=== PATIENT | female | born 1950 | race Caucasian/White ===

== ENCOUNTER 2017-08-09 14:00 | Inpatient (IN) | payer BC, MEDICARE, SELFPAY ==
--- NOTE | 2017-08-09 13:14 | EKG12_ITS ---
Test Reason : SOB Blood Pressure : / mmHG Vent. Rate : 082 BPM Atrial Rate : 082 BPM P-R Int : 140 ms QRS Dur : 112 ms QT Int : 406 ms P-R-T Axes : 043 039 077 degrees QTc Int : 474 ms Normal sinus rhythm Normal ECG Confirmed by ESTEBAN HOSKINS, SANDY ([id number]), assistant production editor NADIA LITTLE ([id number]) on 08/12/2017 5:45:01 PM Referred By: Bryan Huffman Confirmed By:SANDY ORELLANA MD
--- NOTE | 2017-08-09 14:10 | RAD_ITS ---
STUDY: X-RAY CHEST REASON FOR EXAM: Female, 67 years old. Cough 1 week TECHNIQUE: PA and lateral views of the chest. COMPARISON: None. FINDINGS: There is a pattern of increased interstitial markings. This is seen. The lungs especially in the right lower lobe. There is a calcified granuloma in the right upper lobe measuring 7.7 mm. There is no demonstrated pleural abnormality. Normal size heart. Normal mediastinum and ana lilia. Normal visualized pulmonary arteries. Normal visualized aortic arch and descending thoracic aorta. There are diffuse degenerative changes of the visualized thoracic spine. Normal visualized ribs, clavicles, and shoulders. There is no demonstrated abnormality of the visualized soft tissue structures of the upper abdomen. RAD/Chest PA and Lateral IMPRESSION: Findings suspicious for possible mild interstitial edema and/or atypical infiltrates. Mild degenerative change thoracic spine. Electronically Signed: Kristine Murphy MD at 14:49 EDT Tel , Service support ,
--- NOTE | 2017-08-09 17:38 | DT_ITS ---
This patient was seen during an EMR downtime August 03, 2017 - August 10, 2017. This patient may have a combination of paper and electronic documentation or all paper documentation. All documentation is viewable within the e-chart portion of [employer] for each patient visit.
[2017-08-10] VITALS (7 sets, daily range): BP systolic 155–166; BP diastolic 74–85; PULSE 69–87; RESP 14–20; TEMP 36.4–36.8; O2SAT 92–94; BMI 32.5
[2017-08-10] MEDS: hydroCHLOROthiazide 25 MG Tablet PO (05:50)
[2017-08-10] MEDS: Labetalol 200 MG Tablet PO ×2 (05:55→19:29)
[2017-08-10] MEDS: Levothyroxine 88 MCG Tablet PO (06:00)
[2017-08-10] MEDS: Ipratropium/Albuterol Sulfate 3 ML AMPUL.NEB INHALATION ×4 (07:00→22:50)
[2017-08-10 07:04] LABS: Hemoglobin 12.7 g/dl (12.0-15.0); Mean Corp Hgb Conc 32.6 g/gl (32-36); Mean Corpuscular Hgb 30.5 pg (27.0-32.0); Mean Corpuscular Volume 93.8 fL (81-99); Mean Platelet Vol. 9.4 fl (6.2-12.0); Platelet Count 338 K/mm3 (150-450); RBC Distribution Width CV 13.8 % (11.6-14.6); RBC Distribution Width SD 45.3 fl (35.1-43.9); Red Blood Count 4.16 M/mm3 (4.2-5.4); White Blood Count 10.9 K/mm3 (4.4-11.0)
[2017-08-10 07:08] LABS: Scan Indicated on CBC? Y/N NO
[2017-08-10 07:26] LABS: Anion Gap 12 (5-15); BUN 14 mg/dL (7-18); BUN/Creat Ratio 13.9 RATIO (10-20); Calcium,Total 8.4 mg/dL (8.5-10.1); Chloride 99 mmol/L (98-107); Creatinine, Serum 1.01 mg/dL (0.55-1.02); EST Glomerular Filtration Rate 58 mL/min (>60); Est Glom Filt Rate - Afr Amer 71 mL/min (>60); Glucose 201 mg/dL (74-106); Potassium 3.7 mmol/L (3.5-5.1); Sodium Level 136 mmol/L (136-145)
--- NOTE | 2017-08-10 08:07 | ECHOD_ITS ---
Reason For Study: COPD Procedure This was a 2D Doppler, Color Flow transthoracic echocardiogram. Pt. scanned sitting up due to coughing. The study was technically difficult. Contrast injection was performed. Exam performed portable in patient room. Left Ventricle Normal LV size. Segmental dysfunction with preserved ejection fraction (see wall motion). The estimated ejection fraction is 55 %. There is evidence of diastolic dysfunction. Infero-Basal: Hypokinetic. Basal inferoseptal: Hypokinetic. Right Ventricle Normal RV size. Normal systolic function. Atria The left atrium is moderately enlarged. Normal right atrium. No doppler evidence for ASD. Mitral Valve There is no mitral annular calcification. Normal mitral valve. Trivial mitral valve insufficiency. Tricuspid Valve Normal tricuspid valve. Trivial tricuspid valve insufficiency. Unable to estimate RV systolic pressure/pulmonary artery pressure due to technically difficult study. Aortic Valve The aortic valve is not well visualized. Pulmonic Valve The pulmonic valve is not well visualized. Great Vessels Normal sized aortic root. Pericardium/Pleural No pericardial effusion. Medication Diluted definity 5ml given slow IV push to enhance endocardial definition. MMode/2D Measurements & Calculations LVIDd: 5.3 cm IVSd: 1.5 cm Ao root diam: 3.3 cm LVIDs: 3.7 cm LVPWd: 1.7 cm LA dimension: 3.9 cm RVDd: 3.6 cm FS: 29.7 % LAV(MOD-bp): 79.1 ml LA A4 area: 26.1 cm2 RA A4 area: 19.8 cm2 LAV(MOD-bp) Indexed: 34.4 ml/m2 LAV(MOD-sp2): 67.8 ml LAV(MOD-sp4): 84.0 ml Doppler Measurements & Calculations MV E max josh: 107.0 cm/sec Lat Peak E' Josh: 7.6 cm/sec Med Peak E' Josh: 5.1 cm/sec MV A max josh: 84.9 cm/sec E/E' lat: 14.0 E/E' med: 21.0 MV E/A: 1.3 Ao V2 max: 165.9 cm/sec LV V1 max: 99.4 cm/sec PA V2 max: 97.2 cm/sec Ao max P.0 mmHg LV V1 max P.0 mmHg Interpretation Summary The study was technically difficult. Contrast injection was performed. Segmental dysfunction with preserved ejection fraction (see wall motion). The estimated ejection fraction is 55 %. The left atrium is moderately enlarged. Trivial mitral valve insufficiency. Trivial tricuspid valve insufficiency. Unable to estimate RV systolic pressure/pulmonary artery pressure due to technically difficult study. There is evidence of diastolic dysfunction. Ordering Physician: Bogdan Acosta Referring Physician: Delroy Gupta Performed By: Abby Palacios RDCS
[2017-08-10] MEDS: guaiFENesin 1,200 MG Tablet 1200 MG PO (09:52)
[2017-08-10] MEDS: Doxycycline 100 MG CAPSULE PO ×2 (09:52→22:02)
[2017-08-10] MEDS: Losartan Potassium 100 MG Tablet PO (10:47)
[2017-08-10 11:31] LABS: Bedside Glucose 250 mg/dL (70-110)
[2017-08-10] MEDS: Insulin Lispro 100 UNIT/ML INSULN.PEN SC ×3 (11:32→22:02)
--- NOTE | 2017-08-10 13:32 | CASEMGMT ---
RN TIERRA Face to Face with patient for initial transition planning/care coordination assessment. RN CM introduced self and role at [facility]. Patient lying in bed, alert and oriented. Patient willing to participate in assessment and is able to answer all questions appropriately. Care providers, pharmacy, and demographics verified. See link attached. Patient wishes to discharge home, denies need for home health at this time. Patient states she has no further needs or concerns at this time. CM to follow for discharge planning needs that may arise. Disposition Plan: Patient to discharge home with family support and follow-up plans in place.
[2017-08-10] MEDS: Famotidine 20 MG Tablet PO ×2 (13:53→22:02)
[2017-08-10 15:21] LABS: Bedside Glucose 178 mg/dL (70-110)
--- NOTE | 2017-08-10 16:09 | NURSING ---
echo staff called and reminded of order
[2017-08-10] MEDS: guaiFENesin 10 ML UDC (200MG/10ML) PO ×2 (18:30→22:06)
[2017-08-10 22:16] LABS: Bedside Glucose 200 mg/dL (70-110)
[2017-08-11] VITALS (11 sets, daily range): BP systolic 145–178; BP diastolic 78–92; PULSE 66–78; RESP 14–21; TEMP 36.4–36.8; O2SAT 92–94
[2017-08-11] MEDS: guaiFENesin 10 ML UDC (200MG/10ML) PO ×3 (01:32→09:44)
[2017-08-11] MEDS: Ipratropium/Albuterol Sulfate 3 ML AMPUL.NEB INHALATION ×6 (02:51→23:00)
[2017-08-11 06:11] LABS: Anion Gap 10 (5-15); BUN 19 mg/dL (7-18); BUN/Creat Ratio 22.4 RATIO (10-20); Calcium,Total 8.6 mg/dL (8.5-10.1); Chloride 100 mmol/L (98-107); Creatinine, Serum 0.85 mg/dL (0.55-1.02); EST Glomerular Filtration Rate 72 mL/min (>60); Est Glom Filt Rate - Afr Amer 87 mL/min (>60); Glucose 173 mg/dL (74-106); Potassium 3.8 mmol/L (3.5-5.1); Sodium Level 136 mmol/L (136-145)
[2017-08-11] MEDS: Levothyroxine 88 MCG Tablet PO (06:33)
[2017-08-11] MEDS: Losartan Potassium 100 MG Tablet PO (06:33)
[2017-08-11] MEDS: Labetalol 200 MG Tablet PO ×2 (06:33→20:25)
[2017-08-11] MEDS: Insulin Lispro 100 UNIT/ML INSULN.PEN SC ×3 (06:33→20:27)
[2017-08-11] MEDS: hydroCHLOROthiazide 25 MG Tablet PO (06:34)
[2017-08-11 06:51] LABS: Bedside Glucose 176 mg/dL (70-110)
[2017-08-11] MEDS: Famotidine 20 MG Tablet PO ×2 (07:58→20:29)
[2017-08-11 08:11] LABS: Hemoglobin A1c 5.9 % (4.2-6.3)
[2017-08-11 08:27] LABS: Anion Gap 8 (5-15); BUN 12 mg/dL (7-18); BUN/Creat Ratio 12.9 RATIO (10-20); Calcium,Total 8.6 mg/dL (8.5-10.1); Chloride 102 mmol/L (98-107); Creatinine, Serum 0.93 mg/dL (0.55-1.02); EST Glomerular Filtration Rate 64 mL/min (>60); Est Glom Filt Rate - Afr Amer 78 mL/min (>60); Glucose 152 mg/dL (74-106); Potassium 3.4 mmol/L (3.5-5.1); Sodium Level 137 mmol/L (136-145)
[2017-08-11] MEDS: Doxycycline 100 MG CAPSULE PO ×2 (09:44→20:26)
[2017-08-11 11:06] LABS: Absolute Lymphocyte Count 2.05 X10^3/ul (0.83-4.51); Absolute Neutrophil Count 8.3 X10^3/uL (2.0-7.7); Basophil# 0.04 X10^3/uL; Basophil% 0.3 % (0-1); Eosinophil# 0.21 X10^3/uL; Eosinophils% 1.7 % (0-5); Hematocrit 40.2 % (37-47); Hemoglobin 13.2 g/dl (12.0-15.0); Lymphocyte # 2.05 X10^3/ul (4.0); Mean Corp Hgb Conc 32.8 g/gl (32-36); Mean Corpuscular Hgb 30.6 pg (27.0-32.0); Mean Corpuscular Volume 93.1 fL (81-99); Monocyte# 1.36 X10^3/uL; Monocyte% 11.3 % (0-10); Neutrophil # 8.31 X10^3/uL (2.7-7.7); Neutrophil % 69.1 % (47-70); POSITIVE COUNT NO; POSITIVE DIFFERENTIAL NO; POSITIVE MORPHOLOGY NO; Platelet Count 317 K/mm3 (150-450); RBC Distribution Width CV 14.1 % (11.6-14.6); RBC Distribution Width SD 46.1 fl (35.1-43.9); Red Blood Count 4.32 M/mm3 (4.2-5.4)
[2017-08-11 11:36] LABS: Bedside Glucose 199 mg/dL (70-110)
[2017-08-11] MEDS: guaiFENesin/Codeine 5 ML UDC PO ×2 (14:00→18:59)
--- NOTE | 2017-08-11 14:41 | PCM.PN.HOSP ---
Subjective: H&P and progress note until 08/10/2017 as per chart She still has cough and not much relief with Robitussin. Shortness of breath is better. Still wheezing and on 2 L of oxygen. Not on home oxygen Vitals/I&O's: Vital Signs Temp Pulse Resp BP Pulse Ox 97.7 F L 72 18 145/81 H 92 08/11/17 13:55 08/11/17 13:55 08/11/17 13:55 08/11/17 13:55 08/11/17 13:55 Oxygen Flow Rate (L/min) 2 Oxygen Delivery Method Nasal Cannula Weight: 239 lb 15.994 oz Body Mass Index (BMI) 32.5 Intake and Output for Last 24 Hours 08/09/17 08/10/17 08/11/17 23:59 23:59 23:59 Intake Total 2700 / 2700 1000 / 1000 Balance 2700 / 2700 1000 / 1000 General: Alert, Oriented x3, Cooperative HEENT: Atraumatic, PERRLA, EOMI, Normocephalic Neck: Supple, No JVD, Negative Carotid Bruits Lungs: Diminished, Rhonchi, - Cardiovascular: Regular rate, Regular Rhythm, Normal S1, Normal S2, No murmurs Abdomen: Bowel Sounds Present, Soft, Non Tender, Non-Distended Extremities: No edema, Capillary Refill Less than 3 Seconds Skin: No rashes, No breakdown Musculoskeletal: No Tenderness to Palpation of Joints or Extremities Neurological: Cranial nerves II-XII grossly intact Psych/Mental Status: Normal Affect, Appropriate Laboratory Results 08/09/17 : Sodium 137, Potassium 3.4 L, Chloride 102, Carbon Dioxide 27.0, Anion Gap 8, BUN 12, Creatinine 0.93, Est GFR (MDRD) Af Amer 78, Est GFR (MDRD) Non-Af 64, BUN/Creatinine Ratio 12.9, Glucose 152 H, Calcium 8.6 08/09/17 : WBC 12.0 H, RBC 4.32, Hgb 13.2, Hct 40.2, MCV 93.1, MCH 30.6, MCHC 32.8, RDW 14.1, RDW Differential 46.1 H, Plt Count 317, MPV 9.0, Immature Gran % (Auto) 0.600, Neut % (Auto) 69.1, Lymph % (Auto) 17.0 L, [place] % (Auto) 11.3 H, Eos % (Auto) 1.7, Baso % (Auto) 0.3, Absolute Neuts (auto) 8.3 H, Absolute Lymphs (auto) 2.05, Total Counted Not Reportable 08/10/17 15:08: POC Glucose 178 H 08/10/17 22:01: POC Glucose 200 H 08/11/17 05:00: Hemoglobin A1c 5.9 08/11/17 05:00: Sodium 136, Potassium 3.8, Chloride 100, Carbon Dioxide 26.0, Anion Gap 10, BUN 19 H, Creatinine 0.85, Est GFR (MDRD) Af Amer 87, Est GFR (MDRD) Non-Af 72, BUN/Creatinine Ratio 22.4 H, Glucose 173 H, Calcium 8.6 08/11/17 06:30: POC Glucose 176 H 08/11/17 11:18: POC Glucose 199 H Current Medications Acetaminophen (Tylenol) 650 mg PO Q4H PRN PRN PRN Reason: PAIN/FEVER Al Hydroxide/Mg Hydroxide (Mylanta Ii) 30 ml PO Q6H PRN PRN PRN Reason: Dyspepsia Albuterol Sulfate (Ventolin Aerosols) 2.5 mg INHALATION Q2H PRN PRN PRN Reason: DYSPNEA/WHEEZING Albuterol/Ipratropium (Duoneb) 3 ml INHALATION Q4H.RT [facility] Last Admin: 08/11/17 11:28 Dose: 3 ml Dextrose (D50w Syringe) 0 gm IV X1 PRN; Protocol PRN Reason: Hypoglycemia Doxycycline Monohydrate (Doxycycline) 100 mg PO BID [facility] Last Admin: 08/11/17 09:44 Dose: 100 mg Famotidine (Pepcid) 20 mg PO BID [facility] Last Admin: 08/11/17 09:05 Dose: Not Given Glucagon () 1 mg IM .X1 PRN PRN Reason: Hypoglycemia Guaifenesin/Codeine Phosphate (Robitussin Ac) 5 ml PO Q6H [facility] Stop: 08/12/17 06:46 Last Admin: 08/11/17 14:00 Dose: 5 ml Guaifenesin/Codeine Phosphate (Robitussin Ac) 5 ml PO Q6H PRN PRN Hydrochlorothiazide (Hctz) 25 mg PO DAILY [facility] Last Admin: 08/11/17 06:34 Dose: 25 mg Insulin Human Lispro (Humalog Kwikpen (Bkc)) 0 unit SC ACHS [facility] PRN Reason: Protocol Last Admin: 08/11/17 11:22 Dose: 2 u Labetalol HCl (Trandate) 200 mg PO BID [facility] Last Admin: 08/11/17 06:33 Dose: 200 mg Levothyroxine Sodium (Synthroid) 88 mcg PO DAILY@0600 [facility] Last Admin: 08/11/17 06:33 Dose: 88 mcg Losartan Potassium (Cozaar) 100 mg PO DAILY [facility] Last Admin: 08/11/17 06:33 Dose: 100 mg Methylprednisolone (Solu-Medrol) 40 mg IV Q8 [facility] Last Admin: 08/11/17 14:00 Dose: 40 mg Morphine Sulfate () 1 - 2 mg IV Q4H PRN PRN PRN Reason: SEVERE PAIN (6-10/10) Nicotine (Nicoderm Cq (Pbkc)) 21 mg TRANSDERM. DAILY [facility] Last Admin: 08/11/17 07:59 Dose: 21 mg Nitroglycerin (Nitrostat) 0.4 mg SUBLINGUAL Q5M PRN PRN Reason: CARDIAC/CHEST PAIN Ondansetron HCl (Zofran) 4 mg IV Q6H PRN PRN PRN Reason: NAUSEA/VOMITING Oxycodone HCl (Oxyir) 5 - 10 mg PO Q4H PRN PRN PRN Reason: MILD-MOD PAIN (1-5/10) Paroxetine HCl (Paxil) 20 mg PO DAILY [facility] Last Admin: 08/11/17 06:34 Dose: 20 mg Medical Necessity - Tobacco Use Smoking Status: Current every day smoker Assessment/Plan There is a 64-year-old female with history of COPD with more than 40 pack years of smoking and still smokes a pack per day was being admitted with shortness of breath and wheezing and cough. ED, chest x-ray shows increased interstitial marking/interstitial edema especially in right lower lobe. No fever or chills. She was further admitted for COPD exacerbation. 1. Acute hypoxic respiratory failure secondary to COPD: Currently patient is on 2 L of oxygen. Wean off oxygen gradually per tolerated. 2. COPD with acute exacerbation: On IV Solu-Medrol, bronchodilator, cough medication Mucinex, incentive spirometry and chest physiotherapy. Patient has nicotine dependence. Advised smoking cessation. 3. Chronic diastolic heart failure: 2D echo was done and shows normal LV size with EF 55% with evidence of diastolic dysfunction. hypokinetic inferobasal and basal inferoseptal region. Normal mitral valve with trivial MR. Trivial TR. RVSP unable to estimate due to technically difficult study. 4. Hypertension: On losartan. Other comorbidities include history of AAA repair in 2013 hypothyroidism: Home medication reconciliation done. DVT prophylaxis: Lovenox Code Visit Inpatient E&M: 77226 Subs Hosp L2
--- NOTE | 2017-08-11 14:52 | PN_ITS ---
Subjective: H&P and progress note until 08/10/2017 as per chart She still has cough and not much relief with Robitussin. Shortness of breath is better. Still wheezing and on 2 L of oxygen. Not on home oxygen Vitals/I&O's: Vital Signs Temp Pulse Resp BP Pulse Ox 97.7 F L 72 18 145/81 H 92 08/11/17 13:55 08/11/17 13:55 08/11/17 13:55 08/11/17 13:55 08/11/17 13:55 Oxygen Flow Rate (L/min) 2 Oxygen Delivery Method Nasal Cannula Weight: 239 lb 15.994 oz Body Mass Index (BMI) 32.5 Intake and Output for Last 24 Hours 08/09/17 08/10/17 08/11/17 23:59 23:59 23:59 Intake Total 2700 / 2700 1000 / 1000 Balance 2700 / 2700 1000 / 1000 General: Alert, Oriented x3, Cooperative HEENT: Atraumatic, PERRLA, EOMI, Normocephalic Neck: Supple, No JVD, Negative Carotid Bruits Lungs: Diminished, Rhonchi, - Cardiovascular: Regular rate, Regular Rhythm, Normal S1, Normal S2, No murmurs Abdomen: Bowel Sounds Present, Soft, Non Tender, Non-Distended Extremities: No edema, Capillary Refill Less than 3 Seconds Skin: No rashes, No breakdown Musculoskeletal: No Tenderness to Palpation of Joints or Extremities Neurological: Cranial nerves II-XII grossly intact Psych/Mental Status: Normal Affect, Appropriate Laboratory Results 08/09/17 : Sodium 137, Potassium 3.4 L, Chloride 102, Carbon Dioxide 27.0, Anion Gap 8, BUN 12, Creatinine 0.93, Est GFR (MDRD) Af Amer 78, Est GFR (MDRD) Non-Af 64, BUN/Creatinine Ratio 12.9, Glucose 152 H, Calcium 8.6 08/09/17 : WBC 12.0 H, RBC 4.32, Hgb 13.2, Hct 40.2, MCV 93.1, MCH 30.6, MCHC 32.8, RDW 14.1, RDW Differential 46.1 H, Plt Count 317, MPV 9.0, Immature Gran % (Auto) 0.600, Neut % (Auto) 69.1, Lymph % (Auto) 17.0 L, [place] % (Auto) 11.3 H , Eos % (Auto) 1.7, Baso % (Auto) 0.3, Absolute Neuts (auto) 8.3 H, Absolute Lymphs (auto) 2.05, Total Counted Not Reportable 08/10/17 15:08: POC Glucose 178 H 08/10/17 22:01: POC Glucose 200 H 08/11/17 05:00: Hemoglobin A1c 5.9 08/11/17 05:00: Sodium 136, Potassium 3.8, Chloride 100, Carbon Dioxide 26.0, Anion Gap 10, BUN 19 H, Creatinine 0.85, Est GFR (MDRD) Af Amer 87, Est GFR ( MDRD) Non-Af 72, BUN/Creatinine Ratio 22.4 H, Glucose 173 H, Calcium 8.6 08/11/17 06:30: POC Glucose 176 H 08/11/17 11:18: POC Glucose 199 H Current Medications Acetaminophen (Tylenol) 650 mg PO Q4H PRN PRN PRN Reason: PAIN/FEVER Al Hydroxide/Mg Hydroxide (Mylanta Ii) 30 ml PO Q6H PRN PRN PRN Reason: Dyspepsia Albuterol Sulfate (Ventolin Aerosols) 2.5 mg INHALATION Q2H PRN PRN PRN Reason: DYSPNEA/WHEEZING Albuterol/Ipratropium (Duoneb) 3 ml INHALATION Q4H.RT [facility] Last Admin: 08/11/17 11:28 Dose: 3 ml Dextrose (D50w Syringe) 0 gm IV X1 PRN; Protocol PRN Reason: Hypoglycemia Doxycycline Monohydrate (Doxycycline) 100 mg PO BID [facility] Last Admin: 08/11/17 09:44 Dose: 100 mg Famotidine (Pepcid) 20 mg PO BID [facility] Last Admin: 08/11/17 09:05 Dose: Not Given Glucagon () 1 mg IM .X1 PRN PRN Reason: Hypoglycemia Guaifenesin/Codeine Phosphate (Robitussin Ac) 5 ml PO Q6H [facility] Stop: 08/12/17 06:46 Last Admin: 08/11/17 14:00 Dose: 5 ml Guaifenesin/Codeine Phosphate (Robitussin Ac) 5 ml PO Q6H PRN PRN Hydrochlorothiazide (Hctz) 25 mg PO DAILY [facility] Last Admin: 08/11/17 06:34 Dose: 25 mg Insulin Human Lispro (Humalog Kwikpen (Bkc)) 0 unit SC ACHS [facility] PRN Reason: Protocol Last Admin: 08/11/17 11:22 Dose: 2 u Labetalol HCl (Trandate) 200 mg PO BID [facility] Last Admin: 08/11/17 06:33 Dose: 200 mg Levothyroxine Sodium (Synthroid) 88 mcg PO DAILY@0600 [facility] Last Admin: 08/11/17 06:33 Dose: 88 mcg Losartan Potassium (Cozaar) 100 mg PO DAILY [facility] Last Admin: 08/11/17 06:33 Dose: 100 mg Methylprednisolone (Solu-Medrol) 40 mg IV Q8 [facility] Last Admin: 08/11/17 14:00 Dose: 40 mg Morphine Sulfate () 1 - 2 mg IV Q4H PRN PRN PRN Reason: SEVERE PAIN (6-10/10) Nicotine (Nicoderm Cq (Pbkc)) 21 mg TRANSDERM. DAILY [facility] Last Admin: 08/11/17 07:59 Dose: 21 mg Nitroglycerin (Nitrostat) 0.4 mg SUBLINGUAL Q5M PRN PRN Reason: CARDIAC/CHEST PAIN Ondansetron HCl (Zofran) 4 mg IV Q6H PRN PRN PRN Reason: NAUSEA/VOMITING Oxycodone HCl (Oxyir) 5 - 10 mg PO Q4H PRN PRN PRN Reason: MILD-MOD PAIN (1-5/10) Paroxetine HCl (Paxil) 20 mg PO DAILY [facility] Last Admin: 08/11/17 06:34 Dose: 20 mg Medical Necessity - Tobacco Use Smoking Status: Current every day smoker Assessment/Plan There is a 64-year-old female with history of COPD with more than 40 pack years of smoking and still smokes a pack per day was being admitted with shortness of breath and wheezing and cough. ED, chest x-ray shows increased interstitial marking/interstitial edema especially in right lower lobe. No fever or chills. She was further admitted for COPD exacerbation. 1. Acute hypoxic respiratory failure secondary to COPD: Currently patient is on 2 L of oxygen. Wean off oxygen gradually per tolerated. 2. COPD with acute exacerbation: On IV Solu-Medrol, bronchodilator, cough medication Mucinex, incentive spirometry and chest physiotherapy. Patient has nicotine dependence. Advised smoking cessation. 3. Chronic diastolic heart failure: 2D echo was done and shows normal LV size with EF 55% with evidence of diastolic dysfunction. hypokinetic inferobasal and basal inferoseptal region. Normal mitral valve with trivial MR. Trivial TR. RVSP unable to estimate due to technically difficult study. 4. Hypertension: On losartan. Other comorbidities include history of AAA repair in 2013 hypothyroidism: Home medication reconciliation done. DVT prophylaxis: Lovenox Code Visit Inpatient E&M: 15060 Subs Hosp L2
[2017-08-11 19:31] LABS: Bedside Glucose 140 mg/dL (70-110)
[2017-08-11 20:46] LABS: Bedside Glucose 214 mg/dL (70-110)
[2017-08-12] VITALS (11 sets, daily range): BP systolic 152–165; BP diastolic 67–82; PULSE 63–82; RESP 16–22; TEMP 36.4–37; O2SAT 85–96
[2017-08-12] MEDS: guaiFENesin/Codeine 5 ML UDC PO ×4 (01:22→18:21)
[2017-08-12] MEDS: hydroCHLOROthiazide 25 MG Tablet PO (05:59)
[2017-08-12] MEDS: Levothyroxine 88 MCG Tablet PO (05:59)
[2017-08-12] MEDS: Losartan Potassium 100 MG Tablet PO (05:59)
[2017-08-12] MEDS: Labetalol 200 MG Tablet PO ×2 (05:59→18:24)
[2017-08-12] MEDS: Famotidine 20 MG Tablet PO ×2 (06:00→22:13)
[2017-08-12] MEDS: Insulin Lispro 100 UNIT/ML INSULN.PEN SC ×3 (06:18→22:14)
[2017-08-12 06:51] LABS: Bedside Glucose 184 mg/dL (70-110)
[2017-08-12] MEDS: Ipratropium/Albuterol Sulfate 3 ML AMPUL.NEB INHALATION ×5 (06:55→22:46)
[2017-08-12] MEDS: Doxycycline 100 MG CAPSULE PO ×2 (09:50→22:13)
--- NOTE | 2017-08-12 11:01 | RAD_ITS ---
STUDY: X-RAY CHEST REASON FOR EXAM: Female, 67 years old. COPD TECHNIQUE: PA and lateral COMPARISON: None. FINDINGS: There is prominence of interstitial markings bilaterally. There is a small calcified granuloma in the right upper lobe.. There appears to be very mild atelectasis at the left base. There is no demonstrated pleural abnormality. Normal size heart. Normal mediastinum and ana lilia. Normal visualized pulmonary arteries. Mildly calcified aortic arch and descending thoracic aorta. Normal visualized thoracic spine. Normal visualized ribs, clavicles, and shoulders. There is no demonstrated abnormality of the visualized soft tissue structures of the upper abdomen. RAD/Chest PA and Lateral IMPRESSION: Nonspecific bilateral chronic perihilar interstitial thickening and mild left basilar atelectasis. Electronically Signed: Stephen Silva MD at 19:54 EDT , Service support ,
--- NOTE | 2017-08-12 11:01 | PCM.PN.HOSP ---
Subjective: Patient is still short of breath. 92% on 2 L of oxygen. 85% on room air. Gets easily short of breath on mild exertion. Repeat chest x-ray done. Does not show any focal consolidation no significant change from previous x-ray but official report is pending. Mild tachypnea Vitals/I&O's: Vital Signs Temp Pulse Resp BP Pulse Ox 97.8 F 71 20 H 152/67 H 85 08/12/17 07:56 08/12/17 10:45 08/12/17 10:59 08/12/17 07:56 08/12/17 10:59 Oxygen Flow Rate (L/min) 2 Oxygen Delivery Method Room Air Weight: 239 lb 15.994 oz Body Mass Index (BMI) 32.5 Intake and Output for Last 24 Hours 08/10/17 08/11/17 08/12/17 23:59 23:59 23:59 Intake Total 2700 / 2700 1360 / 1360 1500 / 1500 Balance 2700 / 2700 1360 / 1360 1500 / 1500 General: Alert, Oriented x3, Cooperative HEENT: Atraumatic, PERRLA, EOMI, Normocephalic Neck: Supple, No JVD, Negative Carotid Bruits Lungs: Diminished, Rhonchi, Tachypneic Cardiovascular: Regular rate, Regular Rhythm, Normal S1, Normal S2, No murmurs Abdomen: Bowel Sounds Present, Soft, Non Tender Extremities: No edema, Capillary Refill Less than 3 Seconds Skin: No rashes, No breakdown Musculoskeletal: No Tenderness to Palpation of Joints or Extremities Neurological: Cranial nerves II-XII grossly intact Psych/Mental Status: Normal Affect, Appropriate Laboratory Results 08/09/17 : WBC 12.0 H, RBC 4.32, Hgb 13.2, Hct 40.2, MCV 93.1, MCH 30.6, MCHC 32.8, RDW 14.1, RDW Differential 46.1 H, Plt Count 317, MPV 9.0, Immature Gran % (Auto) 0.600, Neut % (Auto) 69.1, Lymph % (Auto) 17.0 L, [place] % (Auto) 11.3 H, Eos % (Auto) 1.7, Baso % (Auto) 0.3, Absolute Neuts (auto) 8.3 H, Absolute Lymphs (auto) 2.05, Total Counted Not Reportable 08/11/17 11:18: POC Glucose 199 H 08/11/17 16:13: POC Glucose 140 H 08/11/17 20:27: POC Glucose 214 H 08/12/17 06:17: POC Glucose 184 H Current Medications Acetaminophen (Tylenol) 650 mg PO Q4H PRN PRN PRN Reason: PAIN/FEVER Al Hydroxide/Mg Hydroxide (Mylanta Ii) 30 ml PO Q6H PRN PRN PRN Reason: Dyspepsia Albuterol Sulfate (Ventolin Aerosols) 2.5 mg INHALATION Q2H PRN PRN PRN Reason: DYSPNEA/WHEEZING Albuterol/Ipratropium (Duoneb) 3 ml INHALATION Q4H.RT [facility] Last Admin: 08/12/17 10:43 Dose: 3 ml Dextrose (D50w Syringe) 0 gm IV X1 PRN; Protocol PRN Reason: Hypoglycemia Doxycycline Monohydrate (Doxycycline) 100 mg PO BID [facility] Last Admin: 08/12/17 09:50 Dose: 100 mg Enoxaparin Sodium (Lovenox) 40 mg SC DAILY [facility] Last Admin: 08/12/17 07:22 Dose: Not Given Famotidine (Pepcid) 20 mg PO BID [facility] Last Admin: 08/12/17 06:00 Dose: 20 mg Glucagon () 1 mg IM .X1 PRN PRN Reason: Hypoglycemia Guaifenesin/Codeine Phosphate (Robitussin Ac) 5 ml PO Q6H PRN PRN Hydrochlorothiazide (Hctz) 25 mg PO DAILY [facility] Last Admin: 08/12/17 05:59 Dose: 25 mg Insulin Human Lispro (Humalog Kwikpen (Bkc)) 0 unit SC ACHS [facility] PRN Reason: Protocol Last Admin: 08/12/17 06:18 Dose: 1 u Labetalol HCl (Trandate) 200 mg PO BID [facility] Last Admin: 08/12/17 05:59 Dose: 200 mg Levothyroxine Sodium (Synthroid) 88 mcg PO DAILY@0600 [facility] Last Admin: 08/12/17 05:59 Dose: 88 mcg Losartan Potassium (Cozaar) 100 mg PO DAILY [facility] Last Admin: 08/12/17 05:59 Dose: 100 mg Methylprednisolone (Solu-Medrol) 40 mg IV Q8 [facility] Last Admin: 08/12/17 06:00 Dose: 40 mg Morphine Sulfate () 1 - 2 mg IV Q4H PRN PRN PRN Reason: SEVERE PAIN (6-10/10) Nicotine (Nicoderm Cq (Pbkc)) 21 mg TRANSDERM. DAILY [facility] Last Admin: 08/12/17 07:59 Dose: 21 mg Nitroglycerin (Nitrostat) 0.4 mg SUBLINGUAL Q5M PRN PRN Reason: CARDIAC/CHEST PAIN Ondansetron HCl (Zofran) 4 mg IV Q6H PRN PRN PRN Reason: NAUSEA/VOMITING Oxycodone HCl (Oxyir) 5 - 10 mg PO Q4H PRN PRN PRN Reason: MILD-MOD PAIN (1-510) Paroxetine HCl (Paxil) 20 mg PO DAILY [facility] Last Admin: 08/12/17 06:00 Dose: 20 mg Medical Necessity - Tobacco Use Smoking Status: Current every day smoker Assessment/Plan There is a 64-year-old female with history of COPD with more than 40 pack years of smoking and still smokes a pack per day was being admitted with shortness of breath and wheezing and cough. ED, chest x-ray shows increased interstitial marking/interstitial edema especially in right lower lobe. No fever or chills. She was further admitted for COPD exacerbation. 1. Acute hypoxic respiratory failure secondary to COPD: Currently patient is on 2 L of oxygen. Wean off oxygen gradually per tolerated. I think she will probably need home oxygen 2. COPD with acute exacerbation: On IV Solu-Medrol, bronchodilator, cough medication Mucinex, incentive spirometry and chest physiotherapy. Patient has nicotine dependence. Steroid effect. Allow repeat CBC shows leukocytosis but most probably due to the Solu-Medrol. The antigens are negative. MRSA nasal screen is negative. Advised smoking cessation. Walking pulse oximetry test tomorrow a.m. 3. Chronic diastolic heart failure: 2D echo was done and shows normal LV size with EF 55% with evidence of diastolic dysfunction. hypokinetic inferobasal and basal inferoseptal region. Normal mitral valve with trivial MR. Trivial TR. RVSP unable to estimate due to technically difficult study. 4. Hypertension: On losartan. Other comorbidities include history of AAA repair in 2013 hypothyroidism: Home medication reconciliation done. DVT prophylaxis: Lovenox Code Visit Inpatient E&M: 55469 [facility] Hosp L3
--- NOTE | 2017-08-12 11:05 | PN_ITS ---
Subjective: Patient is still short of breath. 92% on 2 L of oxygen. 85% on room air. Gets easily short of breath on mild exertion. Repeat chest x-ray done. Does not show any focal consolidation no significant change from previous x-ray but official report is pending. Mild tachypnea Vitals/I&O's: Vital Signs Temp Pulse Resp BP Pulse Ox 97.8 F 71 20 H 152/67 H 85 08/12/17 07:56 08/12/17 10:45 08/12/17 10:59 08/12/17 07:56 08/12/17 10:59 Oxygen Flow Rate (L/min) 2 Oxygen Delivery Method Room Air Weight: 239 lb 15.994 oz Body Mass Index (BMI) 32.5 Intake and Output for Last 24 Hours 08/10/17 08/11/17 08/12/17 23:59 23:59 23:59 Intake Total 2700 / 2700 1360 / 1360 1500 / 1500 Balance 2700 / 2700 1360 / 1360 1500 / 1500 General: Alert, Oriented x3, Cooperative HEENT: Atraumatic, PERRLA, EOMI, Normocephalic Neck: Supple, No JVD, Negative Carotid Bruits Lungs: Diminished, Rhonchi, Tachypneic Cardiovascular: Regular rate, Regular Rhythm, Normal S1, Normal S2, No murmurs Abdomen: Bowel Sounds Present, Soft, Non Tender Extremities: No edema, Capillary Refill Less than 3 Seconds Skin: No rashes, No breakdown Musculoskeletal: No Tenderness to Palpation of Joints or Extremities Neurological: Cranial nerves II-XII grossly intact Psych/Mental Status: Normal Affect, Appropriate Laboratory Results 08/09/17 : WBC 12.0 H, RBC 4.32, Hgb 13.2, Hct 40.2, MCV 93.1, MCH 30.6, MCHC 32.8, RDW 14.1, RDW Differential 46.1 H, Plt Count 317, MPV 9.0, Immature Gran % (Auto) 0.600, Neut % (Auto) 69.1, Lymph % (Auto) 17.0 L, Maverick % (Auto) 11.3 H , Eos % (Auto) 1.7, Baso % (Auto) 0.3, Absolute Neuts (auto) 8.3 H, Absolute Lymphs (auto) 2.05, Total Counted Not Reportable 08/11/17 11:18: POC Glucose 199 H 08/11/17 16:13: POC Glucose 140 H 08/11/17 20:27: POC Glucose 214 H 08/12/17 06:17: POC Glucose 184 H Current Medications Acetaminophen (Tylenol) 650 mg PO Q4H PRN PRN PRN Reason: PAIN/FEVER Al Hydroxide/Mg Hydroxide (Mylanta Ii) 30 ml PO Q6H PRN PRN PRN Reason: Dyspepsia Albuterol Sulfate (Ventolin Aerosols) 2.5 mg INHALATION Q2H PRN PRN PRN Reason: DYSPNEA/WHEEZING Albuterol/Ipratropium (Duoneb) 3 ml INHALATION Q4H.RT [facility] Last Admin: 08/12/17 10:43 Dose: 3 ml Dextrose (D50w Syringe) 0 gm IV X1 PRN; Protocol PRN Reason: Hypoglycemia Doxycycline Monohydrate (Doxycycline) 100 mg PO BID [facility] Last Admin: 08/12/17 09:50 Dose: 100 mg Enoxaparin Sodium (Lovenox) 40 mg SC DAILY [facility] Last Admin: 08/12/17 07:22 Dose: Not Given Famotidine (Pepcid) 20 mg PO BID [facility] Last Admin: 08/12/17 06:00 Dose: 20 mg Glucagon () 1 mg IM .X1 PRN PRN Reason: Hypoglycemia Guaifenesin/Codeine Phosphate (Robitussin Ac) 5 ml PO Q6H PRN PRN Hydrochlorothiazide (Hctz) 25 mg PO DAILY [facility] Last Admin: 08/12/17 05:59 Dose: 25 mg Insulin Human Lispro (Humalog Kwikpen (Bkc)) 0 unit SC ACHS [facility] PRN Reason: Protocol Last Admin: 08/12/17 06:18 Dose: 1 u Labetalol HCl (Trandate) 200 mg PO BID [facility] Last Admin: 08/12/17 05:59 Dose: 200 mg Levothyroxine Sodium (Synthroid) 88 mcg PO DAILY@0600 [facility] Last Admin: 08/12/17 05:59 Dose: 88 mcg Losartan Potassium (Cozaar) 100 mg PO DAILY [facility] Last Admin: 08/12/17 05:59 Dose: 100 mg Methylprednisolone (Solu-Medrol) 40 mg IV Q8 [facility] Last Admin: 08/12/17 06:00 Dose: 40 mg Morphine Sulfate () 1 - 2 mg IV Q4H PRN PRN PRN Reason: SEVERE PAIN (6-10/10) Nicotine (Nicoderm Cq (Pbkc)) 21 mg TRANSDERM. DAILY [facility] Last Admin: 08/12/17 07:59 Dose: 21 mg Nitroglycerin (Nitrostat) 0.4 mg SUBLINGUAL Q5M PRN PRN Reason: CARDIAC/CHEST PAIN Ondansetron HCl (Zofran) 4 mg IV Q6H PRN PRN PRN Reason: NAUSEA/VOMITING Oxycodone HCl (Oxyir) 5 - 10 mg PO Q4H PRN PRN PRN Reason: MILD-MOD PAIN (1-510) Paroxetine HCl (Paxil) 20 mg PO DAILY [facility] Last Admin: 08/12/17 06:00 Dose: 20 mg Medical Necessity - Tobacco Use Smoking Status: Current every day smoker Assessment/Plan There is a 64-year-old female with history of COPD with more than 40 pack years of smoking and still smokes a pack per day was being admitted with shortness of breath and wheezing and cough. ED, chest x-ray shows increased interstitial marking/interstitial edema especially in right lower lobe. No fever or chills. She was further admitted for COPD exacerbation. 1. Acute hypoxic respiratory failure secondary to COPD: Currently patient is on 2 L of oxygen. Wean off oxygen gradually per tolerated. I think she will probably need home oxygen 2. COPD with acute exacerbation: On IV Solu-Medrol, bronchodilator, cough medication Mucinex, incentive spirometry and chest physiotherapy. Patient has nicotine dependence. Steroid effect. Allow repeat CBC shows leukocytosis but most probably due to the Solu-Medrol. The antigens are negative. MRSA nasal screen is negative. Advised smoking cessation. Walking pulse oximetry test tomorrow a.m. 3. Chronic diastolic heart failure: 2D echo was done and shows normal LV size with EF 55% with evidence of diastolic dysfunction. hypokinetic inferobasal and basal inferoseptal region. Normal mitral valve with trivial MR. Trivial TR. RVSP unable to estimate due to technically difficult study. 4. Hypertension: On losartan. Other comorbidities include history of AAA repair in 2013 hypothyroidism: Home medication reconciliation done. DVT prophylaxis: Lovenox Code Visit Inpatient E&M: 31496 [facility] Hosp L3
[2017-08-12 11:30] LABS: Bedside Glucose 142 mg/dL (70-110)
[2017-08-12 11:53] LABS: Absolute Lymphocyte Count 1.25 X10^3/ul (0.83-4.51); Absolute Neutrophil Count 18.9 X10^3/uL (2.0-7.7); Basophil# 0.05 X10^3/uL; Basophil% 0.2 % (0-1); Hematocrit 39.1 % (37-47); Lymphocyte # 1.25 X10^3/ul (4.0); Lymphocyte % 5.7 % (19-41); Mean Corp Hgb Conc 33.2 g/gl (32-36); Mean Corpuscular Hgb 30.9 pg (27.0-32.0); Mean Corpuscular Volume 92.9 fL (81-99); Mean Platelet Vol. 8.9 fl (6.2-12.0); Monocyte# 1.54 X10^3/uL; Neutrophil # 18.93 X10^3/uL (2.7-7.7); Neutrophil % 85.5 % (47-70); Platelet Count 385 K/mm3 (150-450); RBC Distribution Width CV 13.8 % (11.6-14.6); RBC Distribution Width SD 46.1 fl (35.1-43.9); Red Blood Count 4.21 M/mm3 (4.2-5.4); White Blood Count 22.1 K/mm3 (4.4-11.0)
[2017-08-12 12:02] LABS: Differential Indicated SCAN CRITERIA MET; POSITIVE COUNT NO; POSITIVE DIFFERENTIAL YES; POSITIVE MORPHOLOGY YES
[2017-08-12] MEDS: Furosemide 40 MG/4 ML Vial IV (12:09)
[2017-08-12 14:23] LABS: M R Staph aureus DNA By PCR Negative (Negative); Probe Check PASS; Specimen Processing Control PASS
[2017-08-12 22:41] LABS: Bedside Glucose 214 mg/dL (70-110)
[2017-08-13] MEDS: guaiFENesin/Codeine 5 ML UDC PO ×2 (01:08→09:53)
[2017-08-13 04:12] LABS: Differential Comment SCANNED
[2017-08-13 04:20] VITALS: BP 174/85; PULSE 65; RESP 20; TEMP 36.6; O2SAT 95
[2017-08-13] MEDS: Labetalol 200 MG Tablet PO (05:15)
[2017-08-13] MEDS: Levothyroxine 88 MCG Tablet PO (05:15)
[2017-08-13] MEDS: hydroCHLOROthiazide 25 MG Tablet PO (05:16)
[2017-08-13] MEDS: Losartan Potassium 100 MG Tablet PO (05:16)
[2017-08-13] MEDS: Famotidine 20 MG Tablet PO (05:17)
[2017-08-13] MEDS: Insulin Lispro 100 UNIT/ML INSULN.PEN SC (06:31)
[2017-08-13 06:34] LABS: Anion Gap 7 (5-15); BUN 25 mg/dL (7-18); Calcium,Total 8.3 mg/dL (8.5-10.1); Chloride 99 mmol/L (98-107); Creatinine, Serum 0.93 mg/dL (0.55-1.02); EST Glomerular Filtration Rate 65 mL/min (>60); Est Glom Filt Rate - Afr Amer 78 mL/min (>60); Glucose 162 mg/dL (74-106); Magnesium 2.3 mg/dL (1.6-2.6); Potassium 3.7 mmol/L (3.5-5.1); Sodium Level 135 mmol/L (136-145)
[2017-08-13] MEDS: Ipratropium/Albuterol Sulfate 3 ML AMPUL.NEB INHALATION ×2 (07:39→10:57)
[2017-08-13 07:41] VITALS: PULSE 61; RESP 16; O2SAT 95
[2017-08-13 09:12] VITALS: BP 165/72; PULSE 70; RESP 18; TEMP 36.6; O2SAT 94
[2017-08-13 09:21] VITALS: O2SAT 88; O2SAT 92; O2SAT 96
--- NOTE | 2017-08-13 09:34 | PCM.DC ---
You will use the following diet at home:: Cardiac Discharge Activity: May not drive while taking narcotic pain medications. Additional Instructions: can go back work on 08/20/17 Allergies/Adverse Reactions: Allergies No Known Allergies Allergy (Verified 05/16/14 19:16) Medications to take at Discharge Labetalol [Trandate (Beta Jenna)] 200 mg PO BID 07/27/13 Hydrochlorothiazide [Hctz] 25 mg PO DAILY 08/10/17 Levothyroxine [Synthroid] 88 mcg PO DAILY 08/10/17 Paroxetine HCl [Paxil] 20 mg PO DAILY 08/10/17 Albuterol Inhaler [Ventolin Hfa] 2 puff INHALATION Q4H PRN PRN #1 inhaler 08/13/17 Amlodipine [Norvasc] 5 mg PO DAILY #30 tab 08/13/17 Budesonide/Formoterol 80-4.5 [Symbicort 80-4.5 Mcg Inhaler] 2 puff INHALATION BID #1 inhaler 08/13/17 Doxycycline 100 mg PO BID #10 cap 08/13/17 Guaifenesin/Codeine [Robitussin AC] 5 ml PO Q6H PRN PRN #75 ml 08/13/17 Losartan Potassium [Cozaar] 100 mg PO DAILY #30 tab 08/13/17 Nicotine [Nicoderm Cq] 21 mg TRANSDERM. DAILY 30 Days patch 08/13/17 Prednisone 10 mg PO UD #30 tab 08/13/17 The following prescriptions were given: Albuterol Inhaler [Ventolin Hfa] 2 puff INHALATION Q4H PRN PRN #1 inhaler PRN Reason: Sob &/Or Wheezing Guaifenesin/Codeine [Robitussin AC] 5 ml PO Q6H PRN PRN #75 ml PRN Reason: Cough Amlodipine [Norvasc] 5 mg PO DAILY #30 tab Losartan Potassium [Cozaar] 100 mg PO DAILY #30 tab Prednisone 10 mg PO UD #30 tab Budesonide/Formoterol 80-4.5 [Symbicort 80-4.5 Mcg Inhaler] 2 puff INHALATION BID #1 inhaler Doxycycline 100 mg PO BID #10 cap Primary Care Physician: Delroy Gupta MD [Primary Care Provider] - Please follow up with your Primary Care Physician in: in 1-2 weeks Please Follow Up With: Prakash Sood MD When: in 3-4 weeks; sent home on O2
--- NOTE | 2017-08-13 09:37 | PCM.DC.SUM ---
Discharge Date and Diagnosis Date of Admission: 08/09/17 Date of Discharge: 08/13/17 - Primary Discharge Diagnosis Acute hypoxic respiratory failure secondary to COPD exacerbation: 2. COPD with acute exacerbation: 3. Chronic diastolic heart failure, most probably due to uncontrolled hypertension: 4. Uncontrolled hypertension: Hospital Course and Treatment Summary of Care Provided: [] There is a 67-year-old female with history of COPD with more than 40 pack years of smoking and still smokes half pack per day was being admitted with shortness of breath and wheezing and cough. ED, chest x-ray shows increased interstitial marking/interstitial edema especially in right lower lobe. No fever or chills. She was further admitted for COPD exacerbation. 1. Acute hypoxic respiratory failure secondary to COPD: Currently patient is on 2 L of oxygen. Wean off oxygen gradually per tolerated. Currently, she is 91% on room air at rest but her oxygen dropped to 88% on ambulation. Initially, she was reluctant and refused for home oxygen but she agreed until pulse oximetry improved. Patient is being discharged home on 2 L of oxygen during ambulation/at night. Patient needs to follow-up with PCP in 1-2 weeks to check pulse oximetry for further requirement of oxygen. 2. COPD with acute exacerbation: On IV Solu-Medrol, bronchodilator, cough medication Mucinex, incentive spirometry and chest physiotherapy. Patient has nicotine dependence. Steroid effect. Allow repeat CBC shows leukocytosis but most probably due to the Solu-Medrol. Urinary antigens are negative. MRSA nasal screen is negative. Chest x-ray was repeated and reviewed yesterday. Does not show acute change features suggestive of consolidation or pneumonia. Advised smoking cessation. Patient is being discharged home on albuterol inhaler, Symbicort inhaler, tapering dose of prednisone, Robitussin-AC. Discussed with certified solid waste facility operator Dr. Sood and he agreed to see patient in 3-4 weeks and put the patient on waiting list if cancellation occurs as an outpatient. 3. Chronic diastolic heart failure: 2D echo was done and shows normal LV size with EF 55% with evidence of diastolic dysfunction. hypokinetic inferobasal and basal inferoseptal region. Normal mitral valve with trivial MR. Trivial TR. RVSP unable to estimate due to technically difficult study. 4. Uncontrolled hypertension: Patient is on maximum dose of HCTZ and losartan external blood pressure remains in 165/72. Norvasc 5 mg daily added. Other comorbidities include history of AAA repair in 2013 hypothyroidism: Home medication reconciliation done. DVT prophylaxis: Lovenox Discharge medication reconciliation done. Follow-up instructions given. Total time spent, exact 35 minutes on discharge meds reconciliation, examination, review of imaging and blood test and discussion with the patient on follow-up instructions. Discharge Activity: May not drive while taking narcotic pain medications. Home Medications: Medications to take at Discharge Labetalol [Trandate (Beta Jenna)] 200 mg PO BID 07/27/13 Hydrochlorothiazide [Hctz] 25 mg PO DAILY 08/10/17 Levothyroxine [Synthroid] 88 mcg PO DAILY 08/10/17 Paroxetine HCl [Paxil] 20 mg PO DAILY 08/10/17 Albuterol Inhaler [Ventolin Hfa] 2 puff INHALATION Q4H PRN PRN #1 inhaler 08/13/17 Amlodipine [Norvasc] 5 mg PO DAILY #30 tab 08/13/17 Budesonide/Formoterol 80-4.5 [Symbicort 80-4.5 Mcg Inhaler] 2 puff INHALATION BID #1 inhaler 08/13/17 Doxycycline 100 mg PO BID #10 cap 08/13/17 Guaifenesin/Codeine [Robitussin AC] 5 ml PO Q6H PRN PRN #75 ml 08/13/17 Losartan Potassium [Cozaar] 100 mg PO DAILY #30 tab 08/13/17 Nicotine [Nicoderm Cq] 21 mg TRANSDERM. DAILY 30 Days patch 08/13/17 Prednisone 10 mg PO UD #30 tab 08/13/17 Following Prescrptions Were Given to Patient: Albuterol Inhaler [Ventolin Hfa] 2 puff INHALATION Q4H PRN PRN #1 inhaler PRN Reason: Sob &/Or Wheezing Guaifenesin/Codeine [Robitussin AC] 5 ml PO Q6H PRN PRN #75 ml PRN Reason: Cough Amlodipine [Norvasc] 5 mg PO DAILY #30 tab Losartan Potassium [Cozaar] 100 mg PO DAILY #30 tab Prednisone 10 mg PO UD #30 tab Budesonide/Formoterol 80-4.5 [Symbicort 80-4.5 Mcg Inhaler] 2 puff INHALATION BID #1 inhaler Doxycycline 100 mg PO BID #10 cap Primary Care Physician: Delroy Gupta MD [Primary Care Provider] - Please follow up with your Primary Care Physician in: in 1-2 weeks Please Follow Up With: Prakash Sood MD When: in 3-4 weeks; sent home on O2 Medical Necessity - Tobacco Use Smoking Status: Current every day smoker Meaningful Use Info Meaningful Use Diagnoses (Choose all that apply): None applicable Code Visit Inpatient E&M: 57665 [facility] Hosp
[2017-08-13] MEDS: Doxycycline 100 MG CAPSULE PO (09:38)
[2017-08-13] MEDS: amLODIPine 5 MG Tablet PO (09:41)
--- NOTE | 2017-08-13 09:47 | CASEMGMT ---
DAVID MAYORGA notified by DAVID Patino that patient qualifies for home oxygen. Patient is agreeable to [facility] for home oxygen. DAVID MAYORGA obtained script for home oxygen and faxed referral to [facility] at [facility]. DAVID MAYORGA will continue to follow this patient and plan for a safe discharge.
[2017-08-13 10:57] VITALS: PULSE 68; RESP 16
[2017-08-13 11:28] VITALS: BP 165/90; PULSE 68; RESP 18; TEMP 36.9; O2SAT 91
[2017-08-13 12:17] LABS: Pathologist Review Reviewed
[2017-08-13 22:20] LABS: Bedside Glucose 197 mg/dL (70-110)
[2017-08-19 10:33] LABS: Bedside Glucose 199 mg/dL (70-110)
== END 2017-08-13 11:30 | disposition home or self-care (01) | DRG 190 ==
LOC: ED 18:04 → MS3 18:06
PROVIDERS: Admitting Provider Internal Medicine; Emergency Provider Emergency Medicine; Family Provider Family Medicine; PCP Family Medicine; Visit Provider Internal Medicine
DX: J44.1 Chronic obstructive pulmonary disease with (acute) exacerbation (principal); J96.01 Acute respiratory failure with hypoxia; I50.32 Chronic diastolic (congestive) heart failure; I11.0 Hypertensive heart disease with heart failure; E03.9 Hypothyroidism, unspecified; F32.9 Major depressive disorder, single episode, unspecified; F17.200 Nicotine dependence, unspecified, uncomplicated
CPT/HCPCS: 36415; 71046; 80048; 82962; 83036; 83735; 85025; 85027; 87040; 87449; 87641; 93005; 93306; 94640; Q9957; A4216; J1940

== ENCOUNTER → 2017-11-12 12:57 | Outpatient (CLI) | payer BC, SELFPAY ==
[2017-11-12 13:32] VITALS: PULSE 71; PULSE 84; PULSE 88; PULSE 90; PULSE 93; PULSE 95; O2SAT 90; O2SAT 92; O2SAT 93; O2SAT 94; O2SAT 95
--- NOTE | 2017-11-13 12:55 | WT_ITS ---
PSN 6 Minute Walk Test - 6 Minute Walk Test 6 Minute Walk Test: 6 Minute Walk Test PSN:6-Minute Walk Test Start: 11/12/17 13: 32 Freq: Status: Active Protocol: [id number] Document 11/12/17 13:32 SMB (Rec: 11/12/17 13:35 SMB [id number]) 6 Minute Walk Test Date Performed 11/12/17 Time Performed 13:06 Height 6 ft Weight: 240 lb Weight in Pounds 240.[address]: Prakash Sood Assistive device used: None Pre-test Oxygen Delivery Method Room Air Pulse Ox (%) 94 Pulse Rate (60-100 beats/min) 71 Dyspnea Benedicto Scale (0-10) 2 Exertion Benedicto Scale (6-20) 11 1st minute Oxygen Delivery Method Room Air Pulse Ox (%) 92 Pulse Rate (60-100 beats/min) 84 2nd minute Oxygen Delivery Method Room Air Pulse Ox (%) 90 Pulse Rate (60-100 beats/min) 90 3rd minute Oxygen Delivery Method Room Air Pulse Ox (%) 90 Pulse Rate (60-100 beats/min) 95 4th minute Oxygen Delivery Method Room Air Pulse Ox (%) 93 Pulse Rate (60-100 beats/min) 88 5th minute Oxygen Delivery Method Room Air Pulse Ox (%) 93 Pulse Rate (60-100 beats/min) 93 6th minute Oxygen Delivery Method Room Air Pulse Ox (%) 93 Pulse Rate (60-100 beats/min) 90 Post-test Oxygen Delivery Method Room Air Pulse Ox (%) 95 Pulse Rate (60-100 beats/min) 88 Dyspnea Benedicto Scale (0-10) 2 Exertion Benedicto Scale (6-20) 12 Full Laps Walked 14 Partial Lap, Number of Tiles Walked 42 Total Distance Walked (ft) 868 - Interpretation Interpretation: The patient ambulated 860 feet over the course of 6 minutes beginning on room air without assistive devices or breaks. Pretesting oxygen saturation was noted to be 94% on room air. With ambulation, the [place] oxygen saturation was 90%. This represents a significant exertional oxygen desaturation. - Recommendations Recommendations: There is no indication for the use of supplemental oxygen at this time. However , close interval follow-up is recommended, given the degree of oxygen desaturation noted during this study.
== END ==
PROVIDERS: Family Provider Family Medicine; PCP Family Medicine; Visit Provider Internal Medicine Critical Care Medicine
DX: J44.9 Chronic obstructive pulmonary disease, unspecified (principal)
CPT/HCPCS: 94618

== ENCOUNTER → 2017-11-24 13:00 | Outpatient (CLI) | payer BC, SELFPAY ==
--- NOTE | 2017-11-24 15:37 | PFTCOMP_ITS ---
COMPLETE PULMONARY FUNCTION TEST INTERPRETATION Brief HPI: Patient is a 67 year old female, currently under the care of myself, who presents to [facility] for complete pulmonary function tests secondary to diagnosis of COPD. Respiratory therapist reports good effort and reproducible results. Interpretation: Forced expiration spirometry shows a moderate large airways obstructive ventilatory defect with an FEV1 of 63% predicted. There is no significant bronchodilator response by ATS criteria. Spirograms are of good quality and plateau slowly, indicating slowly emptying areas of the lungs. The respiratory flow volume loop shows decreased expiratory flow rates at all lung volumes consistent with airway obstruction. Lung volumes by body plethysmography show a decreased total lung capacity at 5.35 L, 83% predicted. All other lung volumes are within normal limits. Diffusion capacity by carbon monoxide is decreased at 52% predicted. The airway resistance is elevated. No previous pulmonary function tests were available for review. Impression: Irreversible moderate large airways obstructive ventilatory defect with a symmetric reduction diffusing capacity, consistent with patient's diagnosis of COPD
== END ==
PROVIDERS: Family Provider Family Medicine; PCP Family Medicine; Visit Provider Internal Medicine Critical Care Medicine
DX: J44.9 Chronic obstructive pulmonary disease, unspecified (principal)
CPT/HCPCS: 94060; 94726; 94729

== ENCOUNTER → 2017-12-07 15:58 | Outpatient (CLI) | payer BC, SELFPAY ==
[2017-12-07 17:21] LABS: T4 Free Direct 0.93 ng/dL (0.76-1.46); Thyroid Stim Hormone (TSH) 2.35 uIU/mL (0.358-3.74)
== END ==
PROVIDERS: Family Provider Family Medicine; PCP Family Medicine; Visit Provider Family Medicine
DX: E03.9 Hypothyroidism, unspecified (principal)
CPT/HCPCS: 36415; 84439; 84443

== ENCOUNTER → 2017-12-08 16:54 | Outpatient (CLI) | payer BC, MEDICARE, SELFPAY ==
--- NOTE | 2017-12-08 16:56 | CT_ITS ---
STUDY: LOW DOSE CT LUNG CANCER SCREENING REASON FOR EXAM: Female, 67 years old. 1/2 PPD X 40 YEARS Screening for lung cancer. RADIATION DOSAGE (If Supplied By Facility): CTDIvol = ( 4.02 ) mGy, DLP = ( 156.02 ) mGycm TECHNIQUE: No contrast was administered. Low dose technique was utilized (average mAS-38 and kVp 120). 1.25 mm axial source images with a slice interval of 1.25-mm were reconstructed in lung windows. 2.5 mm axial source images with a slice interval of 2.5-mm were reconstructed in lung windows. 5.0 mm axial source images with a slice interval of 5.0-mm were reconstructed in soft tissue windows. Nodule measured using lung windows on PACS and/or independent workstation with automated measurement of minimum and maximum diameter. Nodule measurement reported as average diameter rounded to the nearest whole number. Growth is defined as an increase ins size of greater than 1.5 mm. COMPARISON: None. NODULES: Bilateral calcified lung nodules are noted the largest measures 1 cm is in the anterior segment of the right lung upper lobe they most likely represent granulomas. There is no demonstrated pleural abnormality. Normal heart and pericardium. Normal mediastinum. Normal hilar regions. Normal unenhanced pulmonary arteries. Normal aorta arch and descending thoracic aorta. Normal osseous structures. There is no demonstrated abnormality of the visualized upper abdomen. CT/Low Dose CT Lung Screening IMPRESSION: Lung-RADS category 2. Recommendation: Routine screening CT scan in one year. IMPORTANT NOTES FOR USE: ACR Lung-RADS Version 1.0 Assessment Categories Release Date: June 27, 2013 Category: Coded 0-4 bases on nodule(s) with highest degree of suspicion. Negative screen is defined as categories 1 and 2; a positive screen is defined as categories 3 and 4. Category 3 and 4A nodules that are unchanged on interval CT should be coded as category 2, and individuals returned to screening in 12 months. Category 4X: Category 3 or 4 nodules with additional imaging findings that increase the suspicion of lung cancer, such as spiculation, GGN that doubles in size in 1 year, enlarged lymph notes, etc. Category Modifiers: S (significant finding unrelated to lung cancer) and C (prior history of treated lung cancer) may be added to the 0-4 Lung-RADS Electronically Signed: Yasmani Montero MD at 8:01 EDT Tel , Service support ,
== END ==
PROVIDERS: Family Provider Family Medicine; PCP Family Medicine; Referring Provider Internal Medicine Critical Care Medicine; Visit Provider Internal Medicine Critical Care Medicine
DX: Z12.2 Encounter for screening for malignant neoplasm of respiratory organs (principal); J44.9 Chronic obstructive pulmonary disease, unspecified; Z87.891 Personal history of nicotine dependence
CPT/HCPCS: G0297